=== PATIENT | male | born 2005 | race Caucasian/White ===

== ENCOUNTER 2025-06-28 17:24 | Emergency (ER) | payer BC, MEDICAID ==
[~2025-06-28] VITALS: Ht 198.1 cm; Wt 113.4 kg
[2025-06-28] MEDS ORDERED: IOHEXOL 350 MG/ML 100ML INFUS..BTL IV ONE (17:47)
[2025-06-28 18:05] LABS: IMMATURE GRANULOCYTE ABSOLUTE 0.05 K/uL (0-1); NUCLEATED RED BLOOD CELLS 0.0 % (0.0-0.19); PLATELET COUNT (AUTO) 296 K/uL (130-400); RED BLOOD CELL COUNT(AUTO) 4.84 MIL/uL (4.50-6.20); RED CELL DISTRIBUTION WIDTH 12.4 % (11.0-15.5); WHITE BLOOD COUNT (AUTO) 11.0 K/uL (4.8-10.8)
--- NOTE | 2025-06-28 18:14 | HMCIMG ---
EXAM: CR right Knee, 3 View. CLINICAL HISTORY: trauma COMPARISON: None provided. FINDINGS: BONES: No acute fracture or aggressive appearing osseous lesion. JOINTS: The joint spaces show no significant degenerative disease. There is no joint effusion appreciated. SOFT TISSUES: The soft tissues are unremarkable. IMPRESSION: No acute osseous pathology evident. /[place]
[2025-06-28 18:15] LABS: CREATININE 0.9 mg/dL (0.5-1.3); GLOMERULAR FILTR. RATE CALC 125.0 mL/min (>90); GLUCOSE,RANDOM 103.0 mg/dL (70-105); SODIUM SERUM 137.0 mmol/L (136-145); UREA NITROGEN, BLOOD 9.0 mg/dL (7-18)
--- NOTE | 2025-06-28 18:18 | HMCIMG ---
EXAM: CR right Femur, 2 views on 4 radiographs. CLINICAL HISTORY: trauma COMPARISON: None provided. FINDINGS: BONES: No acute fracture or aggressive appearing osseous lesion. JOINTS: No dislocation. SOFT TISSUES: The soft tissues are unremarkable. IMPRESSION: No acute osseous abnormality. /[place]
--- NOTE | 2025-06-28 18:18 | HMCIMG ---
EXAM: CR right Tibia and fibula, 4 View. CLINICAL HISTORY: trauma COMPARISON: None provided. FINDINGS: BONES: No acute fracture or aggressive appearing osseous lesion. JOINTS: No dislocation. The joint spaces are normal. SOFT TISSUES: The soft tissues are unremarkable. IMPRESSION: No acute osseous abnormality. /[place]
--- NOTE | 2025-06-28 18:22 | HMCIMG ---
EXAM: Pelvic radiograph 1 view HISTORY: Trauma COMPARISON: None TECHNIQUE: AP view of the pelvis FINDINGS: No displaced hip fractures. Hip joints are intact with no evidence of dislocation. Bony pelvis is unremarkable. IMPRESSION: No acute abnormalities seen. /[place]
--- NOTE | 2025-06-28 18:57 | HMCIMG ---
EXAM: CT Chest with Intravenous Contrast. CT Abdomen and Pelvis with Intravenous Contrast CLINICAL HISTORY: Trauma. TECHNIQUE: Axial computed tomography images of the chest, abdomen and pelvis with intravenous contrast. CONTRAST: 100 mL Omnipaque 350 administered intravenously. COMPARISON: None provided. FINDINGS: CHEST: LUNGS: No pulmonary mass. The lungs appear essentially clear. PLEURAL SPACES: No evidence of pneumothorax. No pleural effusion. HEART: No cardiomegaly. No significant pericardial effusion. LYMPH NODES: No lymphadenopathy is evident. ABDOMEN AND PELVIS: LIVER: Unremarkable. No focal lesions. GALLBLADDER AND BILE DUCTS: The gallbladder appears within normal limits. No radioopaque gallstones are seen. No biliary ductal dilatation is evident. PANCREAS: Unremarkable. SPLEEN: Unremarkable. ADRENAL GLANDS: Unremarkable. KIDNEYS, URETERS, AND BLADDER: 1.2 cm right renal cyst in the interpolar region. The urinary bladder is incompletely distended at the time of examination, limiting the evaluation for possible wall thickening. No hydronephrosis or nephrolithiasis. No ureteral calculi. STOMACH AND BOWEL: Unremarkable appearance of the stomach and bowel. No evidence of bowel obstruction. No evidence suggesting enteritis or colitis. PERITONEUM: No free fluid. No free air. REPRODUCTIVE: Unremarkable. LYMPH NODES: No lymphadenopathy is evident. VASCULATURE: No evidence of abdominal aortic aneurysm. BONES: No acute osseous abnormality. IMPRESSION: No acute intrathoracic or intra-abdominal traumatic abnormality. /[place]
--- NOTE | 2025-06-28 19:24 | ERN ---
ED Note History of Present Illness Stated Complaint: BILATERAL LEG PAIN Chief Complaint: Lower Extremity Pain/Injury Time Seen by MD: 17:41 Time Seen by Midlevel: 17:45 Dictation: 20-year-old male coming in status injury with a keto. Patient states the [place] basically ran back towards him and sat on his left upper thigh and then patient flipped over and the callus stepped on his right calf. Patient is complaining of left upper thigh pain and right calf pain. Denies any head injury, denies any LOC. Patient is ambulatory, full range of motion to all extremities. No obvious deformities or abrasions to the my initial across the room assessment. Allergies: Coded Allergies: No Known Allergies (Unverified Allergy, Unknown, 06/28/25) Past Medical History Past Medical History: No Pertinent History Surgical History: None Review of System Dictation Constitutional: Negative for fever,chills, and weight loss Eyes: Negative for injury, pain,redness, and discharge ENT: Negative for injury,pain or swelling Cardiovascular: Negative for chest pain, palpitations, and edema Respiratory: Negative for shortness of breath, cough, and wheezing, Abdomen/GI: Negative for abdominal pain, nausea, vomiting, diarrhea, and constipation Back: Negative for injury and pain : Negative for injury, bleeding and discharge MS/Extremity: Complaining of left femur pain and right calf pain Skin: Negative for rash, and discoloration Neuro: Negative for headache, weakness, numbness, tingling, and seizure Psych: Negative for suicide ideation, homicidal ideation, and hallucinations Review of Systems: was completed Initial Vital Sign VS Vital Signs Date Time Temp Pulse Resp B/P (MAP) Pulse Ox O2 Delivery O2 Flow Rate FiO2 06/28/25 17:27 98.6 86 16 135/80 100 Room Air 0 06/28/25 19:45 21 Physical Exam Dictation General: awake, alert, NAD Head/Face: Normocephalic, atraumatic Eyes: PERRL, EOMI, vision at baseline ENT: oral cavity clear, TMs clear, no signs of infection Neck: Trachea midline, supple, no nuchal rigidity Cardiovascular: RRR, normal S1/S2, No MRGs, no JVD Respiratory: CTAB, no respiratory distress, No rales or wheezes Abdomen: Soft, non-tender, non-distended, normal bowel sounds, no guarding or rebound. Normal no signs of trauma, no ecchymosis, no abrasions, Skin: Warm, dry, normal turgor, no rash, superficial abrasion to the left upper thigh MS/Extremity: Pulses equal, no cyanosis, neurovascular intact, FROM, no obvious deformities, all extremities walking touch Neuro: COAx4, GCS 15, strength 5/5, CN 2-12 intact, normal cerebellar exam, normal gait, Psych: Normal behavior, mood, and affect normal Results (Laboratory/Radiology) Laboratory/Radiology Laboratory Tests Test 06/28/25 17:57 White Blood Count 11.0 K/uL (4.8-10.8) H Red Blood Count 4.84 MIL/uL (4.50-6.20) Hemoglobin 14.9 g/dL (14.0-18.0) Hematocrit 44.0 % (42-54) Mean Corpuscular Volume 90.9 fL (80-100) Mean Corpuscular Hemoglobin 30.8 pg (27.0-33.0) Mean Corpuscular Hemoglobin Concent 33.9 g/dL (32.0-36.0) Red Cell Distribution Width 12.4 % (11.0-15.5) Platelet Count 296 K/uL (130-400) Mean Platelet Volume 9.9 fL (7.5-10.5) Immature Granulocyte % (Auto) 0.5 % (0-1) Neutrophils (%) (Auto) 62.8 % (40.0-77.0) Lymphocytes (%) (Auto) 27.3 % (21.0-51.0) Monocytes (%) (Auto) 6.6 % (3.0-13.0) Eosinophils (%) (Auto) 2.3 % (0.0-8.0) Basophils (%) (Auto) 0.5 % (0.0-5.0) Neutrophils # (Auto) 6.9 K/uL (1.8-7.7) Lymphocytes # (Auto) 3.0 K/uL (1.0-4.8) Monocytes # (Auto) 0.7 K/uL (0.1-1.0) Eosinophils # (Auto) 0.25 K/uL (0.00-0.70) Basophils # (Auto) 0.05 K/uL (0.00-0.20) Absolute Immature Granulocyte (auto 0.05 K/uL (0-1) Nucleated Red Blood Cells 0.0 % (0.0-0.19) Sodium Level 137 mmol/L (136-145) Potassium Level 3.7 mmol/L (3.5-5.1) Chloride Level 101 mmol/L (101-111) Carbon Dioxide Level 28 mmol/L (21-32) Blood Urea Nitrogen 9 mg/dL (7-18) Creatinine 0.9 mg/dL (0.5-1.3) Glomerular Filtration Rate Calc 125 mL/min (>90) Random Glucose 103 mg/dL (70-105) Total Calcium 8.7 mg/dL (8.5-10.1) Total Creatine Kinase 138 U/L (21-232) Labs Reviewed?: Yes X-RAY Comment: [place] [address] [address] IMAGING REPORT Signed PATIENT: NOEMI FRAUSTO MR#: [id number] : 2005 SEX: M AGE: 20 LOCATION: ED ORDER 42 STATUS: REG [facility] REPORT#: [id number] SERVICE 40 REASON: trauma ORDERING PHYSICIAN: CAMILLE RAYMUNDO CNP PROCEDURE: TIBFIB RT - TIBIA/FIBULA 2VWS RT EXAM: CR right Tibia and fibula, 4 View. CLINICAL HISTORY: trauma COMPARISON: None provided. FINDINGS: BONES: No acute fracture or aggressive appearing osseous lesion. JOINTS: No dislocation. The joint spaces are normal. SOFT TISSUES: The soft tissues are unremarkable. IMPRESSION: No acute osseous abnormality. /[place] DICTATED BY: BUDDY MILLER Jr., MD DATE: 06/28/251916 ELECTRONICALLY SIGNED BY: BUDDY MILLER Jr., MD DATE: 06/28/251916 [place] [address] [address] IMAGING REPORT Signed PATIENT: NOEMI FRAUSTO MR#: [id number] : 2005 SEX: M AGE: 20 LOCATION: ED ORDER 42 STATUS: [facility] REPORT#: [id number] SERVICE 40 REASON: trauma ORDERING PHYSICIAN: CAMILLE RAYMUNDO CNP PROCEDURE: PELVIS - PELVIS 1-2VWS EXAM: Pelvic radiograph 1 view HISTORY: Trauma COMPARISON: None TECHNIQUE: AP view of the pelvis FINDINGS: No displaced hip fractures. Hip joints are intact with no evidence of dislocation. Bony pelvis is unremarkable. IMPRESSION: No acute abnormalities seen. /[place] DICTATED BY: MILTON GAN MD DATE: 06/28/251921 ELECTRONICALLY SIGNED BY: MILTON GAN MD DATE: 06/28/251921 [place] [address] [address] IMAGING REPORT Signed PATIENT: NOEMI FRAUSTO MR#: [id number] : 2005 SEX: M AGE: 20 LOCATION: ED ORDER 42 STATUS: [facility] REPORT#: [id number] SERVICE 40 REASON: trauma ORDERING PHYSICIAN: CAMILLE RAYMUNDO CNP PROCEDURE: KNEE 3V LT - KNEE 3VWS LT EXAM: CR right Knee, 3 View. CLINICAL HISTORY: trauma COMPARISON: None provided. FINDINGS: BONES: No acute fracture or aggressive appearing osseous lesion. JOINTS: The joint spaces show no significant degenerative disease. There is no joint effusion appreciated. SOFT TISSUES: The soft tissues are unremarkable. IMPRESSION: No acute osseous pathology evident. /[place] DICTATED BY: AMPARO GILLILAND MD DATE: 06/28/251912 ELECTRONICALLY SIGNED BY: AMPARO GILLILAND MD DATE: 06/28/251912 [place] [address] [address] IMAGING REPORT Signed PATIENT: NOEMI FRAUSTO MR#: [id number] : 2005 SEX: M AGE: 20 LOCATION: ED ORDER 42 STATUS: REG [facility] REPORT#: [id number] SERVICE 40 REASON: trauma ORDERING PHYSICIAN: CAMILLE RAYMUNDO CNP PROCEDURE: FEM LT 2 - FEMUR 2 VW LEFT EXAM: CR right Femur, 2 views on 4 radiographs. CLINICAL HISTORY: trauma COMPARISON: None provided. FINDINGS: BONES: No acute fracture or aggressive appearing osseous lesion. JOINTS: No dislocation. SOFT TISSUES: The soft tissues are unremarkable. IMPRESSION: No acute osseous abnormality. /[place] DICTATED BY: BUDDY MILLER Jr., MD DATE: 06/28/251916 ELECTRONICALLY SIGNED BY: BUDDY MILLER Jr., MD DATE: 06/28/251916 CT Scan Comment: [address] [address] IMAGING REPORT Signed PATIENT: NOEMI FRAUSTO MR#: [id number] : 2005 SEX: M AGE: 20 LOCATION: ED ORDER 42 STATUS: REG [facility] REPORT#: [id number] SERVICE 40 REASON: trauma ORDERING PHYSICIAN: CAMILLE RAYMUNDO CNP PROCEDURE: CAP W - CT CHEST/ABD/PELV W/CONRAST EXAM: CT Chest with Intravenous Contrast. CT Abdomen and Pelvis with Intravenous Contrast CLINICAL HISTORY: Trauma. TECHNIQUE: Axial computed tomography images of the chest, abdomen and pelvis with intravenous contrast. CONTRAST: 100 mL Omnipaque 350 administered intravenously. COMPARISON: None provided. FINDINGS: CHEST: LUNGS: No pulmonary mass. The lungs appear essentially clear. PLEURAL SPACES: No evidence of pneumothorax. No pleural effusion. HEART: No cardiomegaly. No significant pericardial effusion. LYMPH NODES: No lymphadenopathy is evident. ABDOMEN AND PELVIS: LIVER: Unremarkable. No focal lesions. GALLBLADDER AND BILE DUCTS: The gallbladder appears within normal limits. No radioopaque gallstones are seen. No biliary ductal dilatation is evident. PANCREAS: Unremarkable. SPLEEN: Unremarkable. ADRENAL GLANDS: Unremarkable. KIDNEYS, URETERS, AND BLADDER: 1.2 cm right renal cyst in the interpolar region. The urinary bladder is incompletely distended at the time of examination, limiting the evaluation for possible wall thickening. No hydronephrosis or nephrolithiasis. No ureteral calculi. STOMACH AND BOWEL: Unremarkable appearance of the stomach and bowel. No evidence of bowel obstruction. No evidence suggesting enteritis or colitis. PERITONEUM: No free fluid. No free air. REPRODUCTIVE: Unremarkable. LYMPH NODES: No lymphadenopathy is evident. VASCULATURE: No evidence of abdominal aortic aneurysm. BONES: No acute osseous abnormality. IMPRESSION: No acute intrathoracic or intra-abdominal traumatic abnormality. /[place] DICTATED BY: MILTON GAN MD DATE: 06/28/251955 ELECTRONICALLY SIGNED BY: MILTON GAN MD DATE: 06/28/251955 ED Course ED Course Orders Procedure Category Date Status Time Cbc With Differential LAB 06/28/25 Complete 17:41 Basic Metabolic Panel LAB 06/28/25 Complete 17:41 Ct Chest/Abd/Pelv CT 06/28/25 Resulted W/Conrast 17:41 Pelvis 1-2vws RAD 06/28/25 Resulted 17:41 Femur 2 Vw Left RAD 06/28/25 Resulted 17:41 Knee 3vws Lt RAD 06/28/25 Resulted 17:41 Tibia/Fibula 2vws Rt RAD 06/28/25 Resulted 17:41 Iohexol (Omnipaque) PHA 06/28/25 Complete 17:47 Fentanyl Citrate Pf PHA 06/28/25 Complete 0.05 Mg/Ml (Fentanyl 19:00 0.9%Nacl 1000ml (Ns PHA 06/28/25 In Process 1000ml) 19:25 Creatine Kinase, Total LAB 06/28/25 Complete 19:25 Current Medications Medications (Trade) Dose Ordered Sig/David Route PRN Reason Start Time Stop Time Status Last Admin Dose Admin Fentanyl Citrate (FENTanyl CITRate PF 50 MCG/ 1 ML 2ML VIAL) 50 mcg ONCE ONCE IVP 06/28/25 19:00 06/28/25 19:03 DC 06/28/25 19:11 Iohexol (Omnipaque) 35,000 mg STK-MED ONCE IV 06/28/25 17:47 06/28/25 17:47 DC Sodium Chloride 1,000 ml @ 1,000 mls/hr Q1H STAT IV 06/28/25 19:25 06/28/25 20:24 06/28/25 19:40 Vital Signs Date Time Temp Pulse Resp B/P (MAP) Pulse Ox O2 Delivery O2 Flow Rate FiO2 06/28/25 19:45 98.2 75 18 124/76 98 Room Air* 0 21 06/28/25 17:27 98.6 86 16 135/80 100 Room Air 0 Medical Decision Making MDM MDM: 20-year-old male coming in status injury with a Cow. Patient states the cow basically walked back towards him and sat on his left upper thigh and then patient flipped over and the cow stepped on his right calf. Patient is complaining of left upper thigh pain and right calf pain. Denies any head injury, denies any LOC. Patient is ambulatory, full range of motion to all extremities. No obvious deformities or abrasions to the my initial across the room assessment. CT scan and x-rays are all within normal limits. No acute findings noted. Findings were discussed with the family member and patient. Educated on red flag symptoms like severe abdominal pain, discoloration to extremities, nausea or vomiting in the emergency room and. Mother verbalized understanding, answered all questions. Differential diagnosis: Crush injury, pelvic fracture, femur fracture Rationale: Tests considered and ordered secondary to shared decision making include: Previous outside records reviewed: Old ER visits. Risk of complication and/or morbidity or mortality of patient management: None Medications-Per medication reconciliation Need for hospitalization: Patient does not meet criteria for hospitalization. Need for emergency major/minor surgery: No There are no social concerns with this patient. Prescription drug management Prescriptions will include symptomatic care Patient's prior external medical records from other ER visits were reviewed by me as indicated. Prior testing and results from previous visits were reviewed. Prior tests were taken into account with medical decision making and resource utilization, independent historian/historians were used to obtain complete medi jaspal history. I independently interpreted the test that were performed, results were reviewed by me and considered findings on radiology if ordered. Medical management and examination interpretation discussions were had by me with other qualified healthcare professionals as indicated for the patient's care. DX & DISP Disposition: Discharge Departure Impression: Primary Impression: Renal cyst Additional Impression: Crush injury Condition: Stable Additional Instructions: Follow up with your primary care doctor in 1-2 days. Return to the hospital if you develop any severe abdominal pain, nausea or vomiting, discoloration to extremities. Take Tylenol or Motrin [id number] for pain control. Referrals: SELF,REFERRAL (PCP) Time of Disposition: 19:54 I have reviewed the case, and I agree with, Diagnosis and Plan CAMILLE RAYMUNDO [facility] Jun 28, 2025 19:24
[2025-06-28] MEDS: 0.9%NACL 1000ML 1,000 ML IV STA (19:40)
[2025-06-28 20:49] VITALS: BP 126/74; PULSE 80; RESP 18; TEMP 98.2; O2SAT 98
== END 2025-06-28 20:49 | disposition home or self-care (01) ==
LOC: EDH 17:24
DX: S70.312A Abrasion, left thigh, initial encounter (principal); N28.1 Cyst of kidney, acquired; W23.0XXA Caught, crushed, jammed, or pinched between moving objects, initial encounter; Y93.89 Activity, other specified; Y92.89 Other specified places as the place of occurrence of the external cause; Y99.8 Other external cause status
CPT/HCPCS: 99285; 71260; 96374; 82550; 80048; 85025; 36415; 73552; 73562; 72170; 73590; 74177; J3010; J7030; Q9967; 99284